=== PATIENT | male | born 1980 | race Hispanic/Latino ===

== ENCOUNTER 2017-07-06 14:20 | Emergency (ER) | payer OTHER ==
[~2017-07-06 14:20] MED LIST: Sodium Chloride 0.9% 1,000 ML BAG ONE
[2017-07-06] MEDS ORDERED: Metoclopramide HCl 10 MG/2 ML VIAL ONE ×2 (14:56→15:10)
[2017-07-06] MEDS ORDERED: Ondansetron HCl/PF 4 MG/2 ML Vial ONE ×2 (14:56→15:10)
[2017-07-06] MEDS ORDERED: Ketorolac Tromethamine 30 MG/ML VIAL ONE ×2 (14:56→15:10)
[2017-07-06 15:22] LABS: Bilirubin Small (Negative); Blood, Urine Negative (Negative); Clarity Cloudy (Clear); Glucose, Urine (Dipstick) Negative (Negative); Leukocyte Negative (Negative); Nitrite Negative (Negative); Protein, Urine (Dipstick) 100 mg/dL (Neg-Trace); Urobilinogen 0.2 mg/dL (0.2-1.0); pH, Urine 5.5 (5.0-9.0)
[2017-07-06 15:24] LABS: Specific Gravity, Urine 1.034 (1.002-1.036)
[2017-07-06 15:30] LABS: ALT (SGPT) 24 U/L (8-55); AST (SGOT) 22 U/L (5-34); Albumin 5.3 g/dL (3.5-5.0); Alkaline Phosphatase 58 U/L (40-150); Anion Gap 20 mmol/L (10-20); BUN (Urea Nitrogen) 15 mg/dL (8.9-20.6); Bilirubin, Total 0.8 mg/dL (0.2-1.2); Calc. Creatinine Clearance 0 mL/min (70-130); Calcium 10.6 mg/dL (7.8-10.44); Carbon Dioxide 21 mmol/L (22-29); Chloride 107 mmol/L (98-107); Estimated GFR-MDRD 71; Globulin 3.1 g/dL (2.4-3.5); Glucose 149 mg/dL (70-105); Lipase 11 U/L (8-78); Potassium 3.9 mmol/L (3.5-5.1); Protein, Total 8.4 g/dL (6.0-8.3); Sodium 144 mmol/L (136-145)
[2017-07-06 15:38] LABS: Bacteria/HPF Rare-Few HPF (None Seen); Crystals/HPF 4+ AMORPH URATES HPF (Negative); RBC/HPF None Seen HPF (0-3); Squamous Epithelial 0-3 HPF (0-3); WBC/HPF None Seen HPF (0-3)
[2017-07-06 15:43] LABS: Acetaminophen Less than 6.0 mcg/mL (10.0-30.0); Alcohol Less than 10 mg/dL (Less than 10); Salicylate Less than 8.0 mg/dL (15.0-30.0)
[2017-07-06 15:48] LABS: Hemoglobin 15.9 g/dL (14.0-18.0); Lymphocytes 2 % (21-51); MDiff Complete? YES; Mean Corpuscular HGB CONC 34.7 g/dL (32.0-36.0); Mean Corpuscular Volume 86.3 fl (80.0-94.0); Mean Platelet Volume 10.7 fL (7.4-10.4); Monocytes 4 % (0-10); Neutrophil 89 % (42-75); PLT Morphology Comment Appears Adequate; Platelet Count 225 thou/uL (130-400); RBC Distribution Width 10.9 % (11.5-14.5); RBC Morphology Normal; Reactive Lymphocytes 5 % (0-10); Red Blood Cell (RBC) Count 5.29 mill/uL (4.70-6.10); White Blood Cell (WBC) Count 20.1 thou/uL (4.8-10.8)
[2017-07-06 15:52] LABS: THC/Cannabinoid Screen Detected (NotDetected)
[2017-07-06 15:53] LABS: Amphetamine Not Detected (NotDetected); Barbiturates Screen Not Detected (NotDetected); Benzodiazepine Screen Not Detected (NotDetected); Cocaine Metabolite Screen Not Detected (NotDetected); Medtox Control Line Valid? VALID (VALID); Methadone Not Detected (NotDetected); Methamphetamine Detected (NotDetected); Opiate Screen Not Detected (NotDetected); Oxycodone Screen Not Detected (NotDetected); Phencyclidine (PCP) Not Detected (NotDetected); Tricyclic Screen Not Detected (NotDetected)
--- NOTE | 2017-07-06 16:17 | RAD ---
RADIOGRAPH CHEST 1 VIEW: 07/06/17 HISTORY: 36-year-old male with refractory emesis. FINDINGS: The visualized lung hernandez are clear. The cardiomediastinal silhouette and hilar shadows are normal . The lateral costophrenic angles are sharp. The osseous structures appear normal. There is no pn eumothorax. There is no evidence of pneumomediastinum or pneumoperitoneum. IMPRESSION: Negative. tommy [] POS: CHRISTIANO
== END 2017-07-06 16:25 | disposition home or self-care (01) ==
LOC: MADERS 14:20
DX: E86.0 Dehydration (principal); R11.2 Nausea with vomiting, unspecified
CPT/HCPCS: 71010; 80053; 80306; 80307; 81001; 82150; 83690; 85025; 86140; 87086; 96361; 96374; 96375; J1885; J2270; J2405; J2765; J7050

== ENCOUNTER 2018-10-09 19:21 | Emergency (ER) | payer OTHER ==
[2018-10-09] MEDS ORDERED: Haloperidol Lactate 5 MG/ML VIAL ONE (19:42)
[2018-10-09 20:12] LABS: #Basophils 0.1 thou/uL (0.0-0.2); #Lymphocytes 1.8 thou/uL (1.20-3.40); #Monocytes 0.5 thou/uL (0.11-0.59); #Neutrophils 14.2 thou/uL (1.40-6.50); %Basophils 0.6 % (0.0-1.0); %Eosinophils 0.1 % (0.0-10.0); %Lymphocytes 10.6 % (21.0-51.0); %Monocytes 3.3 % (0.0-10.0); %Neutrophils 85.4 % (42.0-75.0); Hemoglobin 17.4 g/dL (14.0-18.0); Mean Corpuscular HGB CONC 33.7 g/dL (32.0-36.0); Mean Corpuscular Hemoglobin 29.4 pg (27.0-31.0); Mean Corpuscular Volume 87.1 fL (78.0-98.0); Mean Platelet Volume 9.4 fL (7.4-10.4); Platelet Count 323 thou/uL (130-400); Red Blood Cell (RBC) Count 5.91 mill/uL (4.70-6.10); White Blood Cell (WBC) Count 16.6 thou/uL (4.8-10.8)
[2018-10-09 20:29] LABS: ALT (SGPT) 23 U/L (8-55); AST (SGOT) 23 U/L (5-34); Alkaline Phosphatase 64 U/L (40-150); Anion Gap 29 mmol/L (10-20); BUN (Urea Nitrogen) 21 mg/dL (8.9-20.6); Bilirubin, Total 1.4 mg/dL (0.2-1.2); Calc. Creatinine Clearance 0 mL/min (70-130); Calcium 11.5 mg/dL (7.8-10.44); Carbon Dioxide 18 mmol/L (22-29); Chloride 100 mmol/L (98-107); Estimated GFR-MDRD 47; Globulin 3.4 g/dL (2.4-3.5); Glucose 147 mg/dL (70-105); Lipase 130 U/L (8-78); Potassium 3.3 mmol/L (3.5-5.1); Protein, Total 9.4 g/dL (6.0-8.3); Sodium 144 mmol/L (136-145)
--- NOTE | 2018-10-09 21:15 | RAD ---
ABDOMEN TWO VIEWS CHEST ONE VIEW: 10/09/18 HISTORY: 37-year-old male with history of acute on chronic abdominal pain. COMPARISON: Chest x-ray 07/06/17. FINDINGS: No significant acute process in the chest. No free intraperitoneal air. No evidence for calculus. No large or small bowel obstruction. IMPRESSION: Unremarkable chest one view and abdomen two views. POS: H
== END 2018-10-09 22:49 | disposition left against medical advice (07) ==
LOC: MADERS 19:21
DX: K85.90 Acute pancreatitis without necrosis or infection, unspecified (principal); Z79.899 Other long term (current) drug therapy
CPT/HCPCS: 74022; 80053; 83690; 84484; 85025; 93005; 94760; 96372; J1630

== ENCOUNTER 2018-10-12 03:00 | Emergency (ER) | payer OTHER ==
[2018-10-12] MEDS ORDERED: Promethazine HCl 25 MG/ML VIAL ONE (03:22)
[2018-10-12] MEDS ORDERED: Mag-Al Plus 1200 MG/1200 MG/120 MG/30 ML UDCUP ONE (03:22)
[2018-10-12] MEDS ORDERED: Lidocaine Viscous Sol 2% 15 ml UD Cup ONE (03:22)
== END 2018-10-12 04:00 | disposition home or self-care (01) ==
LOC: MADERS 03:00
DX: R11.2 Nausea with vomiting, unspecified (principal); Z79.899 Other long term (current) drug therapy
CPT/HCPCS: 96372; J2550

== ENCOUNTER 2020-10-10 09:56 | Outpatient (CLI) | payer OTHER ==
--- NOTE | 2020-10-10 13:52 | RAD ---
LUMBAR SPINE 3 VIEWS: HISTORY: Back pain, back sprain which began 3 months ago. FINDINGS: Mild changes of spondylosis. No fracture, dislocation, or malalignment. IMPRESSION: No significant acute process. POS: RRE
--- NOTE | 2020-10-10 13:54 | RAD ---
THORACIC SPINE 2 VIEWS: INDICATION: Back pain. FINDINGS: Thoracic vertebrae maintain normal height and alignment. Disk spaces are maintained. No evidence of lytic or blastic process. No compression deformity identified. No significant degenerative change. IMPRESSION: Unremarkable thoracic spine. POS: AGW
--- NOTE | 2020-10-10 14:02 | CT ---
CT CERVICAL SPINE WITHOUT CONTRAST: INDICATION: Back pain, neck pain. FINDINGS: Cervical vertebrae maintain height and alignment. There are mild degenerative disk changes noted at C4-5 and C5-6 levels and mild anterior spurring at these levels. C3-4: Mild disk bulge effaces anterior subarachnoid space. C4-5: Mild disk bulge and mild spondylosis abut the anterior cord. No significant foraminal stenosi s. This results in mild central canal stenosis. C5-6: The cervical spinal canal at this level is suboptimally evaluated on CT due to artifact from t he shoulders. There is evidence of disk bulge. Protrusion is not excluded given the artifact. If t here are radicular symptoms related to the disk level, recommend further evaluation with MRI cervical spine. IMPRESSION: Mild degenerative disk changes at C4-5 and c5-6. The C5-6 level is suboptimally evaluated due to sof t tissue attenuation from the shoulders. Recommend clinical correlation and further evaluation with MRI as indicated. POS: LEONCIO
== END 2020-10-10 09:57 | disposition home or self-care (01) ==
LOC: MADRAD 09:56
PROVIDERS: ATTEND Family Medicine
DX: M54.9 Dorsalgia, unspecified (principal); M50.221 Other cervical disc displacement at C4-C5 level
CPT/HCPCS: 72070; 72100; 72125

== ENCOUNTER 2022-09-09 10:59 | Emergency (ER) | payer OTHER ==
[~2022-09-09 10:59] MED LIST changes: +Iopamidol 370 76% 100 ML VIAL ONE; -Sodium Chloride 0.9% 1,000 ML BAG ONE
[2022-09-09] MEDS ORDERED: Haloperidol Lactate 5 MG/ML VIAL ONE (11:48)
[2022-09-09] MEDS ORDERED: Sodium Chloride 0.9% 1,000 ML ONE (11:48)
[2022-09-09] MEDS ORDERED: Pantoprazole 40 MG VIAL ONE (11:48)
[2022-09-09] MEDS ORDERED: Ondansetron PF 4 MG/2 ML Vial ONE (11:48)
[2022-09-09 11:58] LABS: #Basophils 0.1 thou/uL (0.0-0.2); #Lymphocytes 0.8 thou/uL (1.20-3.40); #Monocytes 0.5 thou/uL (0.11-0.59); #Neutrophils 16.4 thou/uL (1.40-6.50); %Basophils 0.4 % (0.0-1.0); %Eosinophils 0.1 % (0.0-10.0); %Lymphocytes 4.6 % (21.0-51.0); %Monocytes 2.8 % (0.0-10.0); %Neutrophils 92.2 % (42.0-75.0); Hemoglobin 15.6 g/dL (14.0-18.0); Mean Corpuscular HGB CONC 34.8 g/dL (32.0-36.0); Mean Corpuscular Hemoglobin 29.9 pg (27.0-31.0); Mean Corpuscular Volume 85.8 fl (78.0-98.0); Mean Platelet Volume 10.2 fL (7.4-10.4); Platelet Count 281 10x3/uL (130-400); RBC Distribution Width 10.7 % (11.5-14.5); Red Blood Cell (RBC) Count 5.21 mill/uL (4.70-6.10); White Blood Cell (WBC) Count 17.8 10x3/uL (4.8-10.8)
[2022-09-09 12:12] LABS: ALT (SGPT) 16 U/L (8-55); AST (SGOT) 19 U/L (5-34); Albumin 5.3 g/dL (3.5-5.0); Alcohol Less than 10 mg/dL (Less than 10); Alkaline Phosphatase 56 U/L (40-110); Anion Gap 24 mmol/L (10-20); BUN (Urea Nitrogen) 12 mg/dL (8.9-20.6); Bilirubin, Total 0.9 mg/dL (0.2-1.2); Calc. Creatinine Clearance 0 mL/min (70-130); Calcium 10.4 mg/dL (7.8-10.44); Carbon Dioxide 18 mmol/L (22-29); Chloride 109 mmol/L (98-107); Estimated GFR 80; Globulin 2.8 g/dL (2.4-3.5); Glucose 105 mg/dL (70-105); Lipase 37 U/L (8-78); Potassium 3.6 mmol/L (3.5-5.1); Protein, Total 8.1 g/dL (6.0-8.3); Sodium 147 mmol/L (136-145)
[2022-09-09] MEDS ORDERED: Ketorolac Tromethamine 30 MG/ML VIAL ONE (12:42)
[2022-09-09 13:25] LABS: Bilirubin Negative (Negative); Blood, Urine Negative (Negative); Clarity Clear (Clear); Glucose, Urine (Dipstick) Negative (Negative); Ketone, Urine > or equal to 80 mg/dL (Negative); Leukocyte Negative (Negative); Nitrite Negative (Negative); Protein, Urine (Dipstick) 30 mg/dL (Neg-Trace); Urobilinogen 0.2 mg/dL (Less than 2)
[2022-09-09 13:35] LABS: Bacteria/HPF Rare-Few HPF (None Seen); Mucous/LPF 1+ LPF (<2+); RBC/HPF None Seen HPF (0-3); Squamous Epithelial 0-3 HPF (0-3); WBC/HPF None Seen HPF (0-3)
[2022-09-09 13:36] LABS: THC/Cannabinoid Screen Detected (NotDetected)
[2022-09-09 13:37] LABS: Amphetamine Not Detected (NotDetected); Barbiturates Screen Not Detected (NotDetected); Benzodiazepine Screen Detected (NotDetected); Cocaine Metabolite Screen Not Detected (NotDetected); Medtox Control Line Valid? VALID (VALID); Methadone Not Detected (NotDetected); Methamphetamine Not Detected (NotDetected); Opiate Screen Not Detected (NotDetected); Oxycodone Screen Not Detected (NotDetected); Phencyclidine (PCP) Not Detected (NotDetected); Tricyclic Screen Not Detected (NotDetected)
== END 2022-09-09 13:56 | disposition home or self-care (01) ==
LOC: MADERS 10:59
DX: R10.816 Epigastric abdominal tenderness (principal); R11.2 Nausea with vomiting, unspecified; F17.200 Nicotine dependence, unspecified, uncomplicated
CPT/HCPCS: 74177; 80053; 80306; 80307; 81003; 81015; 83690; 84484; 85025; 93005; 96372; 96374; 96375; C9113; J1630; J1885; J2405; J7050; Q9967